=== PATIENT | male | born 1985 | race Caucasian/White ===

== ENCOUNTER 2017-05-08 18:28 | Emergency (ER) | payer MEDICAID, OTHER, SELFPAY ==
[~2017-05-08] VITALS: Ht 185.4 cm; Wt 95.5 kg
[~2017-05-08 18:28] MED LIST: /DIVA50TA PO; ABIL10TA9 PO; ABIL1TAB13 PO; ABIL400I IM; ALBU17IN INH; AMBIEN PO; BENZ-52 PO; CYCL10TA PO; DEPA500T2 PO; INVE156I IM; LAMI25TA PO; MONT10TA2 PO; MULTCAP PO; PROT1TAB2 PO; REME15TA PO; SING10TA32 PO
[2017-05-08] MEDS ORDERED: REXU1TAB5 PO (18:38)
[2017-05-08] MEDS ORDERED: IBUPROFEN 600 MG TAB PO ONE (19:30)
[2017-05-08] MEDS ORDERED: IBUP-1022 PO (19:31)
[2017-05-08 20:00] VITALS: BP 131/88
--- NOTE | 2017-05-09 01:59 | REP ---
Clinical: Pain. Technique: Neutral and frog lateral views of the right hip. Findings: Age-related changes are appreciated including early increased sclerosis to the acetabular roof and possible minimal joint space narrowing. No acute fracture dislocation. Overt osteoarthritic degenerative changes. No obvious effusion. Impression: Mild age-related changes. Signed by Jamie June MD 05/09/2017 01:50 A
== END 2017-05-08 20:01 | disposition home or self-care (01) ==
LOC: M ED 18:28
DX: S76.211A Strain of adductor muscle, fascia and tendon of right thigh, initial encounter (principal); X50.1XXA Overexertion from prolonged static or awkward postures, initial encounter; Y92.099 Unspecified place in other non-institutional residence as the place of occurrence of the external cause; Y93.9 Activity, unspecified; Y99.9 Unspecified external cause status; J45.909 Unspecified asthma, uncomplicated; Z79.899 Other long term (current) drug therapy

== ENCOUNTER 2017-12-22 09:14 | Emergency (ER) | payer OTHER, SELFPAY ==
[2017-12-22] MEDS: IBUPROFEN 600 MG TAB PO (10:34)
== END 2017-12-22 10:39 | disposition home or self-care (01) ==
LOC: M ED 09:14
DX: M25.531 Pain in right wrist (principal); J45.909 Unspecified asthma, uncomplicated; F31.9 Bipolar disorder, unspecified; Z87.891 Personal history of nicotine dependence; Z79.899 Other long term (current) drug therapy
CPT/HCPCS: 73110

== ENCOUNTER → 2018-04-28 | Outpatient (REF) | payer OTHER ==
[2018-04-28 12:01] LABS: BASO # 0.1 10^3/uL (0.0-0.2); BASO % 0.7 % (0.0-1.0); EOS # 0.1 10^3/uL (0.0-0.50); EOS % 1.9 % (0.0-3.0); HEMATOCRIT 46.5 % (42.0-52.0); HEMOGLOBIN 15.6 g/dl (13.5-17.5); IMMATURE GRANULOCYTE % 0.3 % (0-3.0); LYMPH # 2.1 10^3/uL (1.5-4.5); LYMPH % 28.6 % (24.0-44.0); MEAN CORPUSCULAR HEMOGLOBIN 29.8 pg (27.0-33.0); MEAN CORPUSCULAR HGB CONC 33.5 g/dl (32.0-36.5); MEAN CORPUSCULAR VOLUME 88.9 fl (80.0-96.0); MONO # 0.6 10^3/uL (0.0-0.8); MONO % 8.6 % (0.0-5.0); NEUTROPHILS # 4.4 10^3/uL (1.8-7.7); NEUTROPHILS % 59.9 % (36.0-66.0); PLATELET COUNT, AUTOMATED 234 10^3/uL (150-450); RED BLOOD COUNT 5.23 10^6/uL (4.30-6.10); RED CELL DISTRIBUTION WIDTH 12.6 % (11.5-14.5); WHITE BLOOD COUNT 7.3 10^3/uL (4.0-10.0)
[2018-04-28 12:21] LABS: ERYTHROCYTE SEDIMENTATION RATE 1 mm/hr (0-15)
[2018-04-28 12:26] LABS: ALBUMIN/GLOBULIN RATIO 1.21 (1.00-1.93); ALKALINE PHOSPHATASE 56 U/L (45-117); ALT/SGPT 29 U/L (12-78); ANION GAP 7 MEQ/L (8-16); AST/SGOT 17 U/L (7-37); BILIRUBIN,TOTAL 0.3 MG/DL (0.2-1.0); BLOOD UREA NITROGEN 17 MG/DL (7-18); CALCIUM LEVEL 8.4 MG/DL (8.5-10.1); CARBON DIOXIDE LEVEL 30 MEQ/L (21-32); CHLORIDE LEVEL 104 MEQ/L (98-107); CHOLESTEROL LEVEL 150 MG/DL (<200); CHOLESTEROL RISK RATIO 4.838 (<5); CREATININE FOR GFR 0.88 MG/DL (0.70-1.30); GLOMERULAR FILTRATION RATE > 60.0 (>60); GLUCOSE, FASTING 92 MG/DL (70-100); HDL CHOLESTEROL 31 MG/DL (>40); LDL CHOLESTEROL 84 MG/DL (<100); NON-HDL-C 119 MG/DL; POTASSIUM SERUM 4.3 MEQ/L (3.5-5.1); SODIUM LEVEL 141 MEQ/L (136-145); TOTAL PROTEIN 7.3 GM/DL (6.4-8.2); TRIGLYCERIDES LEVEL 174 MG/DL (<150)
[2018-04-28 12:39] LABS: ESTIMATED AVERAGE GLUCOSE 114 MG/DL (60-110); HEMOGLOBIN A1c 5.6 %
[2018-05-04 14:15] LABS: QUANTIFERON GOLD TB Negative (Negative); TB Test (QFT) Antigen 0.06 IU/mL (.); TB Test (QFT) Mitogen 6.74 IU/mL (.); TB Test (QFT) Nil 0.06 IU/mL (.)
== END ==
LOC: M SFHCPLAZ 10:55
DX: Z13.1 Encounter for screening for diabetes mellitus (principal); Z13.220 Encounter for screening for lipoid disorders; R40.0 Somnolence; F31.9 Bipolar disorder, unspecified; R05 Cough

== ENCOUNTER 2018-07-09 07:10 | Emergency (ER) | payer OTHER, SELFPAY ==
[~2018-07-09] VITALS: Ht 185.4 cm; Wt 100.0 kg
[~2018-07-09 07:10] MED LIST changes: +IBUP-1022 PO; +REXU1TAB5 PO
[2018-07-09 07:11] VITALS: BP 139/100
[2018-07-09] MEDS ORDERED: BENA25CA4 PO (07:19)
[2018-07-09] MEDS ORDERED: PRED20TA PO (07:29)
[2018-07-09] MEDS ORDERED: PERM5CRE9 TOP (07:29)
== END 2018-07-09 07:40 | disposition home or self-care (01) ==
LOC: M ED 07:10
DX: R21 Rash and other nonspecific skin eruption (principal); F17.210 Nicotine dependence, cigarettes, uncomplicated; F99 Mental disorder, not otherwise specified; Z84.0 Family history of diseases of the skin and subcutaneous tissue; Z79.899 Other long term (current) drug therapy

== ENCOUNTER 2018-07-11 03:27 | Emergency (ER) | payer OTHER, SELFPAY ==
[~2018-07-11] VITALS: Ht 185.4 cm; Wt 100.0 kg
[~2018-07-11 03:27] MED LIST changes: +BENA25CA4 PO; +PERM5CRE9 TOP; +PRED20TA PO
[2018-07-11] MEDS ORDERED: KEFL500C17 PO (06:20)
[2018-07-11 06:26] VITALS: BP 136/88
[2018-07-11] MEDS ORDERED: CEPHALEXIN 500 MG CAP PO ONE (06:30)
== END 2018-07-11 06:28 | disposition home or self-care (01) ==
LOC: M ED 03:27
DX: L97.919 Non-pressure chronic ulcer of unspecified part of right lower leg with unspecified severity (principal); Z72.0 Tobacco use; Z79.899 Other long term (current) drug therapy

== ENCOUNTER 2018-10-13 11:50 | Emergency (ER) | payer BC, OTHER, SELFPAY ==
[~2018-10-13] VITALS: Ht 185.4 cm; Wt 102.3 kg
[~2018-10-13 11:50] MED LIST changes: -/DIVA50TA PO; +DEPA1TAB3 PO; +KEFL500C17 PO
[2018-10-13 14:39] LABS: HEMATOCRIT 47.4 % (42.0-52.0); HEMOGLOBIN 16.2 g/dl (13.5-17.5); MEAN CORPUSCULAR HEMOGLOBIN 29.6 pg (27.0-33.0); MEAN CORPUSCULAR HGB CONC 34.2 g/dl (32.0-36.5); MEAN CORPUSCULAR VOLUME 86.5 fl (80.0-96.0); PLATELET COUNT, AUTOMATED 250 10^3/uL (150-450); RED BLOOD COUNT 5.48 10^6/uL (4.30-6.10); WHITE BLOOD COUNT 8.5 10^3/uL (4.0-10.0)
[2018-10-13 14:58] LABS: AMPHETAMINES LEVEL URINE NEGATIVE (NEGATIVE); BARBITURATES URINE NEGATIVE (NEGATIVE); BENZODIAZEPINES URINE NEGATIVE (NEGATIVE); CANNABINOIDS URINE POSITIVE (NEGATIVE); COCAINE METABOLITE URINE NEGATIVE (NEGATIVE); METHADONE URINE NEGATIVE (NEGATIVE); OPIATES URINE NEGATIVE (NEGATIVE); PHENCYCLIDINE URINE NEGATIVE (NEGATIVE)
[2018-10-13 15:20] LABS: ACETAMINOPHEN LEVEL < 2.0 UG/ML (10.0-30.0); ALBUMIN 4.3 GM/DL (3.2-5.2); ALT/SGPT 52 U/L (12-78); BILIRUBIN,DIRECT 0.1 MG/DL (0.0-0.2); BILIRUBIN,TOTAL 0.6 MG/DL (0.2-1.0); BLOOD UREA NITROGEN 18 MG/DL (7-18); CALCIUM LEVEL 9.1 MG/DL (8.5-10.1); CARBON DIOXIDE LEVEL 28 MEQ/L (21-32); CHLORIDE LEVEL 103 MEQ/L (98-107); CREATININE FOR GFR 0.88 MG/DL (0.70-1.30); ETHYL ALCOHOL (ETHANOL) < 0.003 % (0.000-0.010); GLOMERULAR FILTRATION RATE > 60.0 (>60); GLUCOSE, FASTING 103 MG/DL (70-100); POTASSIUM SERUM 3.9 MEQ/L (3.5-5.1); SALICYLATE LEVEL < 1.7 MG/DL (5.0-30.0); SODIUM LEVEL 139 MEQ/L (136-145); TOTAL PROTEIN 7.6 GM/DL (6.4-8.2)
[2018-10-13] MEDS ORDERED: SERO1TAB PO (17:02)
[2018-10-13 17:14] VITALS: BP 151/93
== END 2018-10-13 17:22 | disposition home or self-care (01) ==
LOC: M ED 11:50
DX: F43.0 Acute stress reaction (principal); F31.30 Bipolar disorder, current episode depressed, mild or moderate severity, unspecified; Z87.891 Personal history of nicotine dependence; F12.10 Cannabis abuse, uncomplicated; Z79.899 Other long term (current) drug therapy
CPT/HCPCS: 80048; 80076; 80307; 84443; 85027; 99284; G0480

== ENCOUNTER 2019-04-13 00:48 | Emergency (ER) | payer OTHER, SELFPAY ==
[~2019-04-13] VITALS: Ht 185.4 cm; Wt 100.0 kg
[~2019-04-13 00:48] MED LIST changes: +SERO1TAB PO
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
[2019-04-13 03:10] VITALS: BP 137/84
== END 2019-04-13 03:11 | disposition home or self-care (01) ==
LOC: M ED 00:48
DX: S00.83XA Contusion of other part of head, initial encounter (principal); V43.52XA Car driver injured in collision with other type car in traffic accident, initial encounter; F31.9 Bipolar disorder, unspecified

== ENCOUNTER 2019-08-20 10:03 | Emergency (ER) | payer OTHER, SELFPAY ==
[~2019-08-20] VITALS: Ht 185.4 cm; Wt 107.7 kg
[2019-08-20] MEDS ORDERED: ONDANSETRON 4 MG ORAL DISINTEGRATING TAB (Q0162 PER 1MG) PO ONE (11:15)
[2019-08-20] MEDS ORDERED: CYCLOBENZAPRINE 10 MG TAB PO ONE (11:45)
[2019-08-20] MEDS ORDERED: ACETAMINOPHEN 325 MG TAB PO ONE (11:45)
[2019-08-20] MEDS ORDERED: KETOROLAC 60 MG/2 ML VIAL (J1885) IM ONE (11:45)
[2019-08-20 12:00] LABS: APPEARANCE, URINE CLEAR (CLEAR); BACTERIA, URINE AUTO NEGATIVE (NEGATIVE); BILIRUBIN, URINE AUTO NEGATIVE (NEGATIVE); BLOOD, URINE BLOOD NEGATIVE (NEGATIVE); COLOR, URINE YELLOW (YELLOW); GLUCOSE, URINE (UA) AUTO NEGATIVE (NEGATIVE); KETONE, URINE AUTO NEGATIVE (NEGATIVE); LEUKOCYTE ESTERASE, URINE AUTO NEGATIVE (NEGATIVE); MUCUS, URINE SMALL (NEGATIVE); NITRITE, URINE AUTO NEGATIVE (NEGATIVE); PROTEIN, URINE AUTO NEGATIVE (NEGATIVE); RBC, URINE AUTO 0 /HPF (0-3); SPECIFIC GRAVITY URINE AUTO 1.011 (1.002-1.035); SQUAMOUS EPITHELIAL CELL UR AU 0 /HPF (0-6); UROBILINOGEN, URINE AUTO 0.2 mg/dL (0.0-2.0); WBC, URINE AUTO 1 /HPF (0-3)
[2019-08-20] MEDS ORDERED: diazePAM 5 MG TAB PO ONE (12:45)
[2019-08-20 14:10] LABS: CHLAMYDIA DNA AMPLIFICATION NEGATIVE (NEGATIVE); GC DNA AMPLIFICATION NEGATIVE (NEGATIVE)
[2019-08-20 14:14] VITALS: BP 137/84
[2019-08-20] MEDS ORDERED: LIDOCAINE 5% (LIDODERM) PATCH TD ONE (14:15)
[2019-08-20] MEDS ORDERED: VALI5TAB PO (14:56)
[2019-08-20] MEDS ORDERED: KETO10TAB PO (14:56)
[2019-08-20] MEDS ORDERED: CYCL10TA PO (14:56)
--- NOTE | 2019-08-20 15:14 | REP ---
CT THORACIC SPINE: CT thoracic spine performed in the axial plane without IV contrast. Sagittal and coronal reconstruction images are performed. No compression fracture or malalignment. There is normal thoracic kyphosis. There is mild diffuse spurring in the mid and lower thoracic vertebral bodies. There is slight disc space narrowing of a few of the lower thoracic disc spaced. No definite abnormal density is seen in the spinal canal. IMPRESSION: Mild degenerative changes. No evidence of acute fracture or dislocation. Electronically Signed by Stan Ybarra MD 08/22/2019 12:01 P
--- NOTE | 2019-08-20 15:17 | REP ---
CT LUMBAR SPINE: CT lumbar spine performed in the axial plane with sagittal and coronal reconstruction images. There is no compression fracture or malalignment. There is normal lumbar lordosis. There is partial sacralization of L5 with spina bifida occulta at that level. No abnormal density is seen in the spinal canal. IMPRESSION: No fracture or dislocation. 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 Electronically Signed by Stan Ybarra MD 08/22/2019 12:02 P
[2019-08-20] MEDS ORDERED: **NOTE PATIENT COMMENT** MISC XX SCH (21:00)
== END 2019-08-20 15:05 | disposition home or self-care (01) ==
LOC: M ED 10:03
DX: M51.36 Other intervertebral disc degeneration, lumbar region (principal); M54.5 Low back pain; Q76.0 Spina bifida occulta; Z79.899 Other long term (current) drug therapy
CPT/HCPCS: 72128; 72131; 81001; 87661; 96372; 99283; J1885

== ENCOUNTER 2019-09-06 21:16 | Emergency (ER) | payer MEDICAID, OTHER, SELFPAY ==
[~2019-09-06] VITALS: Ht 185.4 cm; Wt 109.1 kg
[~2019-09-06 21:16] MED LIST changes: +CYCL-707 PO; -CYCL10TA PO; +KETO10TAB PO; -MONT10TA2 PO; +MONT10TA4 PO; +VALI5TAB PO
[2019-09-06] MEDS ORDERED: BENZ0.5T23 (21:31)
[2019-09-06 22:29] LABS: HEMATOCRIT 44.4 % (42.0-52.0); HEMOGLOBIN 15.2 g/dl (13.5-17.5); MEAN CORPUSCULAR HEMOGLOBIN 30.3 pg (27.0-33.0); MEAN CORPUSCULAR HGB CONC 34.2 g/dl (32.0-36.5); MEAN CORPUSCULAR VOLUME 88.4 fl (80.0-96.0); PLATELET COUNT, AUTOMATED 238 10^3/uL (150-450); RED BLOOD COUNT 5.02 10^6/uL (4.30-6.10); WHITE BLOOD COUNT 6.5 10^3/uL (4.0-10.0)
[2019-09-06 22:52] LABS: AMPHETAMINES LEVEL URINE NEGATIVE (NEGATIVE); BARBITURATES URINE NEGATIVE (NEGATIVE); BENZODIAZEPINES URINE NEGATIVE (NEGATIVE); CANNABINOIDS URINE POSITIVE (NEGATIVE); COCAINE METABOLITE URINE NEGATIVE (NEGATIVE); METHADONE URINE NEGATIVE (NEGATIVE); OPIATES URINE NEGATIVE (NEGATIVE); PHENCYCLIDINE URINE NEGATIVE (NEGATIVE)
[2019-09-06 23:11] LABS: ACETAMINOPHEN LEVEL < 2.0 UG/ML (10.0-30.0); ALBUMIN 3.9 GM/DL (3.2-5.2); ALT/SGPT 24 U/L (12-78); BILIRUBIN,DIRECT < 0.1 MG/DL (0.0-0.2); BILIRUBIN,TOTAL 0.2 MG/DL (0.2-1.0); BLOOD UREA NITROGEN 19 MG/DL (7-18); CALCIUM LEVEL 8.4 MG/DL (8.5-10.1); CARBON DIOXIDE LEVEL 25 MEQ/L (21-32); CHLORIDE LEVEL 108 MEQ/L (98-107); CREATININE FOR GFR 1.04 MG/DL (0.70-1.30); ETHYL ALCOHOL (ETHANOL) < 0.003 % (0.000-0.010); GLOMERULAR FILTRATION RATE > 60.0 (>60); GLUCOSE, FASTING 125 MG/DL (70-100); POTASSIUM SERUM 3.7 MEQ/L (3.5-5.1); SALICYLATE LEVEL 2.5 MG/DL (5.0-30.0); SODIUM LEVEL 142 MEQ/L (136-145); TOTAL PROTEIN 6.8 GM/DL (6.4-8.2)
[2019-09-07 00:07] VITALS: BP 133/80
== END 2019-09-07 00:18 | disposition home or self-care (01) ==
LOC: M ED 21:16
DX: Z04.6 Encounter for general psychiatric examination, requested by authority (principal); F43.0 Acute stress reaction; F31.9 Bipolar disorder, unspecified; Z79.899 Other long term (current) drug therapy; Z87.891 Personal history of nicotine dependence
CPT/HCPCS: 36415; 80048; 80076; 80307; 84443; 85027; 99284; G0480

== ENCOUNTER → 2020-03-04 | Outpatient (CLI) | payer BC, MEDICAID ==
[~2020-03-04] MED LIST changes: +BENZ0.5T23
== END ==
LOC: M RAD 16:00
PROVIDERS: ATTEND Physician Assistant Medical
DX: R05 Cough (principal); Z20.828 Contact with and (suspected) exposure to other viral communicable diseases
CPT/HCPCS: 71046; U0003

== ENCOUNTER 2021-11-23 07:59 | Emergency (ER) | payer BC, MEDICAID, OTHER, SELFPAY ==
[~2021-11-23] VITALS: Ht 185.4 cm; Wt 108.1 kg
[2021-11-23 07:59] VITALS: BP 142/90
[~2021-11-23 07:59] MED LIST changes: +MIRT-62 PO; -MONT10TA4 PO; +MONT10TA97 PO; -REME15TA PO
[2021-11-23] MEDS ORDERED: SERO1TAB PO (08:13)
[2021-11-23] MEDS ORDERED: SERO1TAB3 PO (08:13)
[2021-11-23] MEDS ORDERED: COLA100C5 PO (09:06)
== END 2021-11-23 09:22 | disposition home or self-care (01) ==
LOC: M ED 07:59
DX: K64.8 Other hemorrhoids (principal); F31.9 Bipolar disorder, unspecified; Z79.899 Other long term (current) drug therapy; F12.20 Cannabis dependence, uncomplicated

== ENCOUNTER 2022-04-05 20:24 | Emergency (ER) | payer OTHER, MEDICAID ==
[~2022-04-05] VITALS: Ht 185.4 cm; Wt 106.1 kg
[~2022-04-05 20:24] MED LIST changes: +COLA100C5 PO; +SERO1TAB3 PO
[2022-04-06 01:30] VITALS: BP 137/88
[2022-04-06] MEDS ORDERED: NAPR-837 PO (11:29)
[2022-04-06] MEDS ORDERED: ASPE4PAD TOP (11:29)
[2022-04-06] MEDS ORDERED: METH-1165 PO (11:29)
[2022-04-06] MEDS ORDERED: ADULKIT XX (12:08)
== END 2022-04-06 01:42 | disposition left against medical advice (07) ==
LOC: M ED 20:24
DX: Z53.21 Procedure and treatment not carried out due to patient leaving prior to being seen by health care provider (principal)

== ENCOUNTER 2022-04-06 07:56 | Emergency (ER) | payer OTHER, MEDICAID ==
[~2022-04-06] VITALS: Ht 185.4 cm; Wt 105.3 kg
[2022-04-06] MEDS ORDERED: KETOROLAC 60MG 2ML VIAL IM ONE (10:25)
[2022-04-06] MEDS ORDERED: LIDOCAINE 5% (LIDODERM) PATCH TD ONE (10:25)
[2022-04-06] MEDS ORDERED: ASPE4PAD TOP (11:29)
[2022-04-06] MEDS ORDERED: NAPR-837 PO (11:29)
[2022-04-06] MEDS ORDERED: METH-1165 PO (11:29)
[2022-04-06 12:05] VITALS: BP 150/90
[2022-04-06] MEDS ORDERED: ADULKIT XX (12:08)
[2022-04-06] MEDS ORDERED: **NOTE PATIENT COMMENT** MISC XX ONE (23:00)
== END 2022-04-06 12:19 | disposition home or self-care (01) ==
LOC: M ED 07:56
DX: M54.17 Radiculopathy, lumbosacral region (principal); I10 Essential (primary) hypertension; J45.909 Unspecified asthma, uncomplicated; F32.9 Major depressive disorder, single episode, unspecified; Z79.899 Other long term (current) drug therapy
CPT/HCPCS: 72110; 96372; 99283; J1885

== ENCOUNTER 2022-04-15 13:07 | Emergency (ER) | payer OTHER, MEDICAID ==
[~2022-04-15] VITALS: Ht 185.4 cm; Wt 103.3 kg
[2022-04-15 13:07] VITALS: BP 155/90
[~2022-04-15 13:07] MED LIST changes: +ADULKIT XX; +ASPE4PAD TOP; +METH-1165 PO; +NAPR-837 PO
== END 2022-04-15 13:20 | disposition left against medical advice (07) ==
LOC: M ED 13:07
DX: Z53.21 Procedure and treatment not carried out due to patient leaving prior to being seen by health care provider (principal)

== ENCOUNTER 2022-04-21 08:07 | Emergency (ER) | payer OTHER, MEDICAID ==
[~2022-04-21] VITALS: Ht 185.4 cm; Wt 104.6 kg
[2022-04-21] MEDS ORDERED: KETOROLAC 60MG 2ML VIAL IM ONE (11:35)
[2022-04-21 13:14] VITALS: BP 141/90
== END 2022-04-21 13:15 | disposition home or self-care (01) ==
LOC: M ED 08:07
DX: M54.50 Low back pain, unspecified (principal); M79.662 Pain in left lower leg; I10 Essential (primary) hypertension; J45.909 Unspecified asthma, uncomplicated; Z87.820 Personal history of traumatic brain injury; F12.10 Cannabis abuse, uncomplicated; Z79.899 Other long term (current) drug therapy
CPT/HCPCS: 93971; 96372; 99283; J1885

== ENCOUNTER → 2022-05-02 | Outpatient (CLI) | payer OTHER ==
[2022-05-02 09:43] LABS: ALBUMIN 4.4 GM/DL (3.2-5.2); ALT/SGPT 30 U/L (12-78); BILIRUBIN,TOTAL 0.4 MG/DL (0.2-1.0); BLOOD UREA NITROGEN 18 MG/DL (7-18); CALCIUM LEVEL 9.2 MG/DL (8.5-10.1); CARBON DIOXIDE LEVEL 28 MEQ/L (21-32); CHLORIDE LEVEL 107 MEQ/L (98-107); CHOLESTEROL LEVEL 188 MG/DL (<200); CHOLESTEROL RISK RATIO 5.081 (<5); CREATININE FOR GFR 0.88 MG/DL (0.70-1.30); GLOMERULAR FILTRATION RATE > 60.0 (>60); GLUCOSE, FASTING 107 MG/DL (70-100); HDL CHOLESTEROL 37 MG/DL (>40); LDL CHOLESTEROL 123 MG/DL (<100); NON-HDL-C 151 MG/DL; POTASSIUM SERUM 4.2 MEQ/L (3.5-5.1); SODIUM LEVEL 138 MEQ/L (136-145); TOTAL PROTEIN 7.6 GM/DL (6.4-8.2); TRIGLYCERIDES LEVEL 138 MG/DL (<150)
== END ==
LOC: M LAB 08:32
PROVIDERS: ATTEND Nurse Practitioner Family
DX: Z00.01 Encounter for general adult medical examination with abnormal findings (principal)

== ENCOUNTER → 2022-05-03 | Outpatient (CLI) | payer OTHER ==
[2022-05-03 07:43] LABS: BASO # 0.1 10^3/uL (0.0-0.2); BASO % 0.7 % (0.0-1.0); EOS # 0.2 10^3/uL (0.0-0.5); EOS % 2.3 % (0.0-3.0); HEMATOCRIT 43.5 % (42.0-52.0); HEMOGLOBIN 14.7 g/dl (13.5-17.5); LYMPH # 1.9 10^3/uL (1.5-5.0); LYMPH % 25.3 % (24.0-44.0); MEAN CORPUSCULAR HEMOGLOBIN 29.6 pg (27.0-33.0); MEAN CORPUSCULAR HGB CONC 33.8 g/dl (32.0-36.5); MEAN CORPUSCULAR VOLUME 87.7 fl (80.0-96.0); MONO # 0.6 10^3/uL (0.0-0.8); NEUTROPHILS # 4.7 10^3/uL (1.5-8.5); NEUTROPHILS % 63.6 % (36.0-66.0); PLATELET COUNT, AUTOMATED 222 10^3/uL (150-450); RED BLOOD COUNT 4.96 10^6/uL (4.30-6.10); WHITE BLOOD COUNT 7.4 10^3/uL (4.0-10.0)
[2022-05-03 08:09] LABS: HEMOGLOBIN A1c 5.7 %
== END ==
LOC: M LAB 07:13
PROVIDERS: ATTEND Nurse Practitioner Family
DX: Z00.01 Encounter for general adult medical examination with abnormal findings (principal)

== ENCOUNTER → 2022-05-14 | Outpatient (CLI) | payer OTHER | LOC: M PLARAD 11:11 | PROVIDERS: ATTEND Nurse Practitioner Family | DX: M51.17 Intervertebral disc disorders with radiculopathy, lumbosacral region (principal); M25.78 Osteophyte, vertebrae; E88.2 Lipomatosis, not elsewhere classified ==

== ENCOUNTER 2024-05-29 14:28 | Emergency (ER) | payer MEDICAID, OTHER ==
[~2024-05-29] VITALS: Ht 185.4 cm; Wt 98.2 kg
[~2024-05-29 14:28] MED LIST changes: -BENZ-52 PO; +BENZ0.5T2; -BENZ0.5T23; +BENZ1TAB5 PO; -MIRT-62 PO; +MIRT-88 PO; +MONT-5 PO; -SING10TA32 PO
[2024-05-29] MEDS ORDERED: ATOM60CA PO (14:43)
[2024-05-29 16:26] VITALS: TEMP 98.1
[2024-05-29 19:09] LABS: HEMATOCRIT 43.7 % (42.0-52.0); HEMOGLOBIN 14.7 g/dl (13.5-17.5); MEAN CORPUSCULAR HEMOGLOBIN 30.8 pg (27.0-33.0); MEAN CORPUSCULAR HGB CONC 33.6 g/dl (32.0-36.5); MEAN CORPUSCULAR VOLUME 91.4 fl (80.0-96.0); PLATELET COUNT, AUTOMATED 247 10^3/uL (150-450); RED BLOOD COUNT 4.78 10^6/uL (4.30-6.10)
[2024-05-29 19:27] LABS: ERYTHROCYTE SEDIMENTATION RATE 13 mm/hr (0-15)
[2024-05-29 19:43] LABS: C REACTIVE PROTEIN QUANTITATIV < 0.40 MG/DL (<1.0)
[2024-05-29 19:45] LABS: BLOOD UREA NITROGEN 17 MG/DL (9-23); CALCIUM LEVEL 9.2 MG/DL (8.5-10.1); CARBON DIOXIDE LEVEL 30 MMOL/L (20-31); CHLORIDE LEVEL 108 MMOL/L (98-107); CREATININE FOR GFR 0.74 MG/DL (0.70-1.30); GLOMERULAR FILTRATION RATE > 60.0 (>60); GLUCOSE, FASTING 93 MG/DL (60-100); POTASSIUM SERUM 4.4 MMOL/L (3.5-5.1); SODIUM LEVEL 142 MMOL/L (136-145)
[2024-05-29 20:36] VITALS: BP 145/82; O2SAT 98
== END 2024-05-29 20:40 | disposition left against medical advice (07) ==
LOC: M ED 14:28
DX: L97.919 Non-pressure chronic ulcer of unspecified part of right lower leg with unspecified severity (principal); F12.10 Cannabis abuse, uncomplicated; J45.909 Unspecified asthma, uncomplicated; F31.9 Bipolar disorder, unspecified; Z79.899 Other long term (current) drug therapy; Z53.9 Procedure and treatment not carried out, unspecified reason

== ENCOUNTER 2024-06-23 12:21 | Emergency (ER) | payer MEDICAID, OTHER ==
[~2024-06-23] VITALS: Ht 185.4 cm; Wt 101.6 kg
[~2024-06-23 12:21] MED LIST changes: +ATOM60CA PO
[2024-06-23] MEDS ORDERED: QUET50TA4 (12:32)
[2024-06-23 13:43] LABS: BASO % 0.3 % (0.0-1.0); EOS # 0.2 10^3/uL (0.0-0.5); EOS % 2.6 % (0.0-3.0); HEMATOCRIT 43.2 % (42.0-52.0); HEMOGLOBIN 14.8 g/dl (13.5-17.5); LYMPH # 2.4 10^3/uL (1.5-5.0); LYMPH % 38.8 % (24.0-44.0); MEAN CORPUSCULAR HEMOGLOBIN 30.5 pg (27.0-33.0); MEAN CORPUSCULAR HGB CONC 34.3 g/dl (32.0-36.5); MEAN CORPUSCULAR VOLUME 89.1 fl (80.0-96.0); MONO # 0.6 10^3/uL (0.0-0.8); NEUTROPHILS % 49.1 % (36.0-66.0); PLATELET COUNT, AUTOMATED 247 10^3/uL (150-450); RED BLOOD COUNT 4.85 10^6/uL (4.30-6.10); WHITE BLOOD COUNT 6.1 10^3/uL (4.0-10.0)
[2024-06-23 13:53] LABS: ERYTHROCYTE SEDIMENTATION RATE 7 mm/hr (0-15)
[2024-06-23 14:12] LABS: C REACTIVE PROTEIN QUANTITATIV < 0.40 MG/DL (<1.0)
[2024-06-23 14:14] LABS: BLOOD UREA NITROGEN 15 MG/DL (9-23); CALCIUM LEVEL 9.3 MG/DL (8.5-10.1); CARBON DIOXIDE LEVEL 26 MMOL/L (20-31); CHLORIDE LEVEL 110 MMOL/L (98-107); CREATININE FOR GFR 0.72 MG/DL (0.70-1.30); GLOMERULAR FILTRATION RATE > 60.0 (>60); GLUCOSE, FASTING 109 MG/DL (60-100); POTASSIUM SERUM 3.7 MMOL/L (3.5-5.1); SODIUM LEVEL 140 MMOL/L (136-145)
[2024-06-23 15:55] VITALS: BP 156/88; TEMP 97.7; O2SAT 98
[2024-06-23 16:22] LABS: HIV 1&2 SCREEN NEGATIVE (NEGATIVE)
== END 2024-06-23 15:57 | disposition home or self-care (01) ==
LOC: M ED 12:21
DX: I87.311 Chronic venous hypertension (idiopathic) with ulcer of right lower extremity (principal); F12.10 Cannabis abuse, uncomplicated; F31.9 Bipolar disorder, unspecified; I10 Essential (primary) hypertension; Z79.899 Other long term (current) drug therapy

== ENCOUNTER → 2024-08-08 | Outpatient (CLI) | payer OTHER ==
[~2024-08-08] MED LIST changes: +QUET50TA4
== END ==
LOC: M RAD 13:44
PROVIDERS: ATTEND Physician Assistant
DX: I87.311 Chronic venous hypertension (idiopathic) with ulcer of right lower extremity (principal)

== ENCOUNTER 2024-10-03 11:58 | Emergency (ER) | payer OTHER ==
[2024-10-03] MEDS: FLUORESCEIN OPHTH 1MG STRIP OD ONE (13:15)
[2024-10-03] MEDS: TETRACAINE 0.5% OPHTH SOLN 4ML OD ONE (13:15)
[2024-10-03 14:00] VITALS: BP 157/84; TEMP 97.2; O2SAT 100
== END 2024-10-03 14:02 | disposition home or self-care (01) ==
LOC: M ED 11:58
DX: T15.01XA Foreign body in cornea, right eye, initial encounter (principal); W31.1XXA Contact with metalworking machines, initial encounter; I10 Essential (primary) hypertension; F31.9 Bipolar disorder, unspecified; J45.909 Unspecified asthma, uncomplicated; Y92.89 Other specified places as the place of occurrence of the external cause; Y93.89 Activity, other specified; Y99.0 Civilian activity done for income or pay

== ENCOUNTER 2024-11-13 12:06 | Emergency (ER) | payer OTHER ==
[~2024-11-13] VITALS: Ht 185.4 cm; Wt 99.2 kg
[2024-11-13 14:28] VITALS: BP 157/97; TEMP 97.6; O2SAT 98
[2024-11-13] MEDS: IBUPROFEN 600MG TAB PO ONE (14:30)
== END 2024-11-13 14:36 | disposition home or self-care (01) ==
LOC: M ED 12:06
DX: M25.532 Pain in left wrist (principal); I10 Essential (primary) hypertension; J45.909 Unspecified asthma, uncomplicated; F19.10 Other psychoactive substance abuse, uncomplicated; F10.10 Alcohol abuse, uncomplicated; Z79.899 Other long term (current) drug therapy

== ENCOUNTER → 2024-12-05 | Outpatient (CLI) | payer OTHER | LOC: M RAD 07:30 | PROVIDERS: ATTEND Physician Assistant | DX: I87.311 Chronic venous hypertension (idiopathic) with ulcer of right lower extremity (principal); L97.812 Non-pressure chronic ulcer of other part of right lower leg with fat layer exposed; R52 Pain, unspecified ==

== ENCOUNTER 2025-02-11 18:03 | Emergency (ER) | payer OTHER ==
[~2025-02-11] VITALS: Ht 185.4 cm; Wt 104.4 kg
[~2025-02-11 18:03] MED LIST changes: -BACT800T5 PO; -BACTDSTA PO; -CEPH500C PO; -IBUP200C28 PO; -OMEP-173 PO; -QUET100T2 PO; -QUET1TAB17 PO
[2025-02-11] MEDS: CEPHALEXIN 500 MG CAP PO ONE (19:31)
[2025-02-11] MEDS: BACTRIM 160MG/800MG DS TAB PO ONE (19:31)
[2025-02-11] MEDS ORDERED: BACT800T5 PO (19:32)
[2025-02-11] MEDS ORDERED: CEPH500C PO (19:32)
[2025-02-11 19:44] VITALS: BP 157/98; TEMP 97.7; O2SAT 96
[2025-02-12] MEDS ORDERED: QUET1TAB17 PO (21:52)
[2025-02-12] MEDS ORDERED: CEPH500C PO (21:52)
[2025-02-12] MEDS ORDERED: QUET100T2 PO (21:52)
[2025-02-12] MEDS ORDERED: OMEP-173 PO (21:52)
[2025-02-12] MEDS ORDERED: BACTDSTA PO (21:52)
[2025-02-12] MEDS ORDERED: IBUP200C28 PO (21:53)
== END 2025-02-11 19:45 | disposition home or self-care (01) ==
LOC: M ED 18:03
DX: L03.012 Cellulitis of left finger (principal); W22.8XXA Striking against or struck by other objects, initial encounter; Y92.009 Unspecified place in unspecified non-institutional (private) residence as the place of occurrence of the external cause; Y93.89 Activity, other specified; Y99.9 Unspecified external cause status

== ENCOUNTER → 2025-02-11 | Outpatient (CLI) | payer OTHER ==
[~2025-02-11] MED LIST changes: -ABIL400I IM; +ARIP400S IM; +BACT800T5 PO; +BACTDSTA PO; +BUPR10TASR PO; +CEPH500C PO; +IBUP200C28 PO; +LORA-930 PO; +OMEP-173 PO; +QUET100T2 PO; +QUET1TAB17 PO; +THERTAB52 PO
== END ==
LOC: M RAD 17:46
PROVIDERS: ATTEND Physician Assistant Medical
DX: M79.642 Pain in left hand (principal)

== ENCOUNTER 2025-02-12 19:37 | Inpatient (IN) | payer OTHER ==
[~2025-02-12] VITALS: Ht 185.4 cm; Wt 106.0 kg
[~2025-02-12 19:37] MED LIST changes: +BACT800T5 PO; +CEPH500C PO
[2025-02-12] MEDS: KETOROLAC 30 MG/ML 1 ML VIAL IV ONE (20:45)
[2025-02-12 21:03] LABS: BASO # 0.0 10^3/uL (0.0-0.2); BASO % 0.2 % (0.0-1.0); EOS # 0.3 10^3/uL (0.0-0.5); EOS % 2.6 % (0.0-3.0); LYMPH # 0.4 10^3/uL (1.5-5.0); LYMPH % 3.7 % (24.0-44.0); MONO # 0.4 10^3/uL (0.0-0.8); MONO % 3.6 % (2.0-8.0); NEUTROPHILS # 10.7 10^3/uL (1.5-8.5); NEUTROPHILS % 89.6 % (36.0-66.0); PLATELET COUNT, AUTOMATED 230 10^3/uL (150-450)
[2025-02-12 21:08] LABS: ERYTHROCYTE SEDIMENTATION RATE 16 mm/hr (0-15)
[2025-02-12 21:23] LABS: C REACTIVE PROTEIN QUANTITATIV 6.61 MG/DL (<1.0); CALCIUM LEVEL 8.7 MG/DL (8.5-10.1); CARBON DIOXIDE LEVEL 28 MMOL/L (20-31); CHLORIDE LEVEL 102 MMOL/L (98-107); CREATININE FOR GFR 1.03 MG/DL (0.70-1.30); GLOMERULAR FILTRATION RATE > 90.0 (>60); POTASSIUM SERUM 3.4 MMOL/L (3.5-5.1); SODIUM LEVEL 140 MMOL/L (136-145)
[2025-02-12] MEDS: cefTRIAXone SOD 1 GM in DEXTROSE 5% (D5W) ADV/MINI-BAG 50 ML IV ONE (21:45)
[2025-02-12] MEDS ORDERED: QUET100T2 PO (21:52)
[2025-02-12] MEDS ORDERED: OMEP-173 PO (21:52)
[2025-02-12] MEDS ORDERED: QUET1TAB17 PO (21:52)
[2025-02-12] MEDS ORDERED: BACTDSTA PO (21:52)
[2025-02-12] MEDS ORDERED: CEPH500C PO (21:52)
[2025-02-12] MEDS ORDERED: IBUP200C28 PO (21:53)
[2025-02-12] MEDS ORDERED: HOME MED LIST COMPLETE! XX SCH (21:55)
[2025-02-13] VITALS (7 sets, daily range): BP systolic 143–164; BP diastolic 77–108; TEMP 97.2–98.6; O2SAT 95–100
[2025-02-13] MEDS ORDERED: PILL CUTTER 1 EACH XX PRN (00:50)
[2025-02-13 01:12] LABS: ALT/SGPT 28 U/L (7.0-40); AST/SGOT 29 U/L (<34)
[2025-02-13] MEDS: PIPERACILLIN/TAZOBACTAM SOD 4.5 GM in DEXTROSE 5% (D5W) ADV/MINI-BAG 50 ML IV SCH (01:21)
[2025-02-13] MEDS: ACETAMINOPHEN 500 MG TAB PO SCH (01:21)
[2025-02-13] MEDS: VANCOMYCIN HCL 2,000 MG, VIAL MATE ADAPTER 1 EACH in NS 500 ML IV ONE (02:32)
[2025-02-13] MEDS ORDERED: IBUPROFEN 400 MG TAB PO PRN (04:00)
[2025-02-13] MEDS: LR 1,000 ML IV SCH (04:57)
[2025-02-13 06:41] LABS: PLATELET COUNT, AUTOMATED 175 10^3/uL (150-450)
[2025-02-13 07:06] LABS: C REACTIVE PROTEIN QUANTITATIV 6.54 MG/DL (<1.0)
[2025-02-13 07:07] LABS: CALCIUM LEVEL 7.9 MG/DL (8.5-10.1); CARBON DIOXIDE LEVEL 27 MMOL/L (20-31); CHLORIDE LEVEL 108 MMOL/L (98-107); CREATININE FOR GFR 0.87 MG/DL (0.70-1.30); GLOMERULAR FILTRATION RATE > 90.0 (>60); POTASSIUM SERUM 3.5 MMOL/L (3.5-5.1); SODIUM LEVEL 145 MMOL/L (136-145)
[2025-02-13] MEDS: OMEPRAZOLE 20MG CAP PO SCH (07:33)
[2025-02-13] MEDS: LORATADINE 10 MG TAB PO SCH (08:48)
[2025-02-13] MEDS: VANCOMYCIN HCL 1,000 MG, VIAL MATE ADAPTER 1 EACH in NS 250 ML IV SCH (10:31)
[2025-02-13] MEDS: MULTIVITAMINS/MINERALS THERAP 1 TAB PO SCH (10:59)
[2025-02-13] MEDS ORDERED: MIDAZOLAM INJ 2 MG/2 ML VIAL As Ordered ONE (14:14)
[2025-02-13] MEDS ORDERED: LIDOCAINE 2% 100 MG/5 ML SDV (FOR ANES.) As Ordered ONE (14:14)
[2025-02-13] MEDS ORDERED: KETOROLAC 30 MG/ML 1 ML VIAL As Ordered ONE (14:55)
[2025-02-13] MEDS ORDERED: dexAMETHasone 4 MG/ML 1 ML VIAL As Ordered ONE (14:55)
[2025-02-13] MEDS ORDERED: ACETAMINOPHEN 1000MG/100ML IV BAG As Ordered ONE (14:55)
[2025-02-13] MEDS ORDERED: ONDANSETRON 4MG 2ML VIAL As Ordered ONE (14:55)
[2025-02-13] MEDS: ONDANSETRON 4MG 2ML VIAL IV PRN (15:23)
[2025-02-13] MEDS: HYDROMORPHONE HCL 0.5 MG/0.5 ML SYRINGE IV PRN (15:24)
[2025-02-14 05:40] VITALS: BP 118/63; TEMP 98.5; O2SAT 93
[2025-02-14 07:51] LABS: PLATELET COUNT, AUTOMATED 244 10^3/uL (150-450)
[2025-02-14 08:21] LABS: C REACTIVE PROTEIN QUANTITATIV 4.92 MG/DL (<1.0); CALCIUM LEVEL 8.8 MG/DL (8.5-10.1); CARBON DIOXIDE LEVEL 26 MMOL/L (20-31); CHLORIDE LEVEL 105 MMOL/L (98-107); CREATININE FOR GFR 0.73 MG/DL (0.70-1.30); GLOMERULAR FILTRATION RATE > 90.0 (>60); POTASSIUM SERUM 4.0 MMOL/L (3.5-5.1); SODIUM LEVEL 143 MMOL/L (136-145)
[2025-02-14] MEDS: VANCOMYCIN HCL 1,250 MG, VIAL MATE ADAPTER 1 EACH in NS 250 ML IV SCH (11:03)
[2025-02-14 12:00] VITALS: TEMP 96.9; O2SAT 99
[2025-02-14 19:40] VITALS: BP 159/91; TEMP 97.7; O2SAT 94
[2025-02-15 04:15] VITALS: BP 143/87; TEMP 97.9; O2SAT 97
[2025-02-15] MEDS ORDERED: APAP325T4 PO (08:24)
[2025-02-15] MEDS ORDERED: PROB250C PO (08:24)
[2025-02-15] MEDS ORDERED: ZYVO1TAB PO (08:24)
[2025-02-15 09:50] LABS: PLATELET COUNT, AUTOMATED 230 10^3/uL (150-450)
[2025-02-15] MEDS ORDERED: OXYC-517 PO (09:56)
[2025-02-15 10:14] LABS: C REACTIVE PROTEIN QUANTITATIV 2.18 MG/DL (<1.0); CALCIUM LEVEL 8.9 MG/DL (8.5-10.1); CARBON DIOXIDE LEVEL 30 MMOL/L (20-31); CHLORIDE LEVEL 104 MMOL/L (98-107); CREATININE FOR GFR 0.85 MG/DL (0.70-1.30); GLOMERULAR FILTRATION RATE > 90.0 (>60); POTASSIUM SERUM 3.9 MMOL/L (3.5-5.1); SODIUM LEVEL 145 MMOL/L (136-145)
[2025-02-15 12:00] VITALS: BP 152/82; TEMP 97.8; O2SAT 100
[2025-02-15] MEDS: ATOMOXETINE HCL 10 MG CAPSULE PO SCH (12:58)
[2025-02-15] MEDS ORDERED: DOXY-440 PO (15:50)
== END 2025-02-15 16:27 | disposition home or self-care (01) | DRG 720 ==
LOC: M ED 19:37 → M ED INP 02-13 00:27 → EEVIPCON 02-13 00:27 → M MS4PR 02-13 16:23
PROVIDERS: ADMIT Student in an Organized Health Care Education/Training Program; ATTEND Student in an Organized Health Care Education/Training Program
PROC: 0X9K0ZZ Drainage of Left Hand, Open Approach (ICD-10-PCS; principal; 2025-02-13 14:15)
DX: A41.9 Sepsis, unspecified organism (principal); L03.114 Cellulitis of left upper limb; L02.512 Cutaneous abscess of left hand; N17.9 Acute kidney failure, unspecified; F39 Unspecified mood [affective] disorder; K21.9 Gastro-esophageal reflux disease without esophagitis; Z79.899 Other long term (current) drug therapy

== ENCOUNTER → 2025-03-05 | Outpatient (CLI) | payer OTHER ==
[~2025-03-05] MED LIST changes: +APAP325T4 PO; +ATOM60CA2 PO; +BACTDSTA PO; +DOXY-440 PO; +IBUP200C28 PO; +OMEP-173 PO; +OXYC-517 PO; +PROB250C PO; +QUET100T2 PO; +QUET1TAB17 PO; +ZYVO1TAB PO
== END ==
LOC: M RAD 07:54
PROVIDERS: ATTEND Radiology Diagnostic Radiology
DX: S92.425A Nondisplaced fracture of distal phalanx of left great toe, initial encounter for closed fracture (principal); X58.XXXA Exposure to other specified factors, initial encounter; Y92.9 Unspecified place or not applicable; Y93.9 Activity, unspecified; Y99.9 Unspecified external cause status

== ENCOUNTER → 2025-03-05 | Outpatient (CLI) | payer OTHER ==
[~2025-03-05] MED LIST changes: +LIDOCAINE 1% MDV 20 ML VIAL As Ordered ONE; +LIDOCAINE 1% MDV 20 ML VIAL SC SCH; +SODIUM TETRADECYL SULFATE(3%)30MG/ML 2ML VIAL (SOTRADECOL) IV SCH
== END ==
LOC: M IRPRO 06:55
PROVIDERS: ATTEND Radiology Diagnostic Radiology
DX: I87.2 Venous insufficiency (chronic) (peripheral) (principal); Z53.9 Procedure and treatment not carried out, unspecified reason

== ENCOUNTER 2025-04-21 10:28 | Emergency (ER) | payer OTHER ==
[~2025-04-21] VITALS: Ht 185.4 cm; Wt 103.8 kg
[~2025-04-21 10:28] MED LIST changes: -IBUP-1022 PO; +IBUP600T42 PO; -LIDOCAINE 1% MDV 20 ML VIAL As Ordered ONE; -LIDOCAINE 1% MDV 20 ML VIAL SC SCH; -PERM5CRE9 TOP; +PERM60CR2 TOP; -SODIUM TETRADECYL SULFATE(3%)30MG/ML 2ML VIAL (SOTRADECOL) IV SCH
[2025-04-21 12:39] VITALS: BP 141/89; TEMP 96.8; O2SAT 97
[2025-04-21] MEDS ORDERED: AMOX875T2 PO (12:42)
== END 2025-04-21 12:46 | disposition home or self-care (01) ==
LOC: M ED 10:28
DX: S63.231A Subluxation of proximal interphalangeal joint of left index finger, initial encounter (principal); W54.0XXA Bitten by dog, initial encounter; Y92.009 Unspecified place in unspecified non-institutional (private) residence as the place of occurrence of the external cause; Y93.89 Activity, other specified; Y99.9 Unspecified external cause status; Z91.048 Other nonmedicinal substance allergy status; Z79.1 Long term (current) use of non-steroidal anti-inflammatories (NSAID); Z79.2 Long term (current) use of antibiotics; Z79.899 Other long term (current) drug therapy